=== PATIENT | male | born 1970 | race Caucasian/White ===

== ENCOUNTER 2016-10-27 13:38 | Emergency (ER) | payer BC ==
[2016-10-27] MEDS ORDERED: 0.9 % SODIUM CHLORIDE 1,000 ML BAG IV ONE (13:53)
[2016-10-27] MEDS ORDERED: ONDANSETRON HCL IV 4 MG/2 ML VIAL IVP ONE (13:53)
[2016-10-27] MEDS ORDERED: MECLIZINE 25 MG TABLET PO ONE (13:54)
--- NOTE | 2016-10-27 13:59 | Emergency Department Record ---
History of Present Illness - General Chief Complaint: Dizziness Stated Complaint: DIZZINESS Time Seen by Provider: 10/27/16 13:42 Source: Patient Mode of Arrival: Wheelchair Limitations: No limitations - History of Present Illness Initial Comments: 46 yo male presents with a feeling of dizziness and left ear ringing that started on Thursday at work. No headaches, no vision changes, no speech changes, no weakness or coordination changes of the arms or legs. It is worse with activity or changes in position. He feels off balance with walking. No fevers or chills. No drainage from the ear. The symptoms come and go but now are fairly constant. The were gone or mild over the weekend and then worse today. He was seen at a [facility] care but after feeling shaky he came to the ED. No vomiting. MD Complaint: Dizziness, Lightheadedness, Difficulty walking Onset/Timin -: Days(s) Timing: Gradual onset Description: Lightheadedness, Nausea History of Same: No History of Trauma: No Severity: Severe Improves With: Nothing Worsens With: Movement Associated Symptoms: Ataxia - [place] Coma Scale Eye Response: (4) Open spontaneously Motor Response: (6) Obeys commands Verbal Response: (5) Oriented [place] Total: 15 - Symptoms of Stroke Symptoms of stroke: Dizziness, Vertigo - Related Data Home Medications Medication Instructions Recorded Confirmed Last Taken No Home Med [NO HOME MEDS] 10/27/16 10/27/16 Unknown Allergies Allergy/AdvReac Type Severity Reaction Status Date / Time No Known Drug Allergies Allergy Verified 10/27/16 13:47 Travel Screening - Travel/Exposure Within Last 30 Days Have you traveled within the last 30 days?: No Review of Systems Constitutional: Denies: Chills, Fever, Malaise, Night sweats, Weakness Eyes: Denies: Eye discharge, Eye pain, Photophobia, Vision change ENT: Reports: Ear pain (left ear ringing). Denies: Congestion, Epistaxis, Throat pain Respiratory: Denies: Cough, Dyspnea, Hemoptysis, Stridor, Wheezes Cardiovascular: Denies: Chest pain, Palpitations, Syncope Endocrine: Denies: Fatigue, Polydipsia, Polyuria Gastrointestinal: Reports: Nausea. Denies: Abdominal pain, Diarrhea, Vomiting Genitourinary: Denies: Dysuria, Frequency, Hematuria, Urgency Musculoskeletal: Denies: Arthralgia, Back pain, Neck pain Skin: Denies: Bruising, Change in color, Rash Neurological: Reports: Vertigo. Denies: Abnormal gait, Confusion, Headache, Numbness, Paresthesias, Seizure, Tingling, Tremors, Weakness Psychiatric: Denies: Anxiety Hematological/Lymphatic: Denies: Anemia, Blood Clots, Easy bleeding, Easy bruising, Swollen glands Past Medical History - SOCIAL HISTORY Smoking Status: Never smoker Alcohol Use: None Drug Use: None - RESPIRATORY Hx Respiratory Disorders: No - CARDIOVASCULAR Hx Cardio Disorders: No - NEURO Hx Neuro Disorders: No - GI Hx GI Disorders: No - Hx Genitourinary Disorders: No - ENDOCRINE Hx Endocrine Disorders: No - MUSCULOSKELETAL Hx Musculoskeletal Disorders: No - PSYCH Hx Psych Problems: No - HEMATOLOGY/ONCOLOGY Hx Hematology/Oncology Disorders: No Family Medical History Any Significant Family History?: No Physical Exam - General General Appearance: Alert, Oriented x3, Cooperative, No acute distress Limitations: No limitations - Head Head exam: Normal inspection - Eye Eye exam: Normal appearance, PERRL, EOMI. negative: Conjunctival injection, Nystagmus, Periorbital swelling, Periorbital tenderness - ENT ENT exam: TM's normal bilaterally (Left TM cerumen covering the TM, right is normal). negative: Normal exam Ear exam: Normal external inspection. negative: External canal tenderness Nasal Exam: Normal inspection. negative: Discharge, Sinus tenderness Mouth exam: Normal external inspection, Tongue normal Teeth exam: Normal inspection. negative: Dental caries Throat exam: Normal inspection. negative: Tonsillar erythema, Tonsillar exudate - Neck Neck exam: Normal inspection, Full ROM. negative: Lymphadenopathy, Tenderness - Respiratory Respiratory exam: Normal lung sounds bilaterally. negative: Respiratory distress - Cardiovascular Cardiovascular Exam: Regular rate, Normal rhythm, Normal heart sounds. negative : Diastolic murmur, Systolic murmur Peripheral Pulses: 2+: Radial (R), Radial (L) - GI/Abdominal GI/Abdominal exam: Soft. negative: Tenderness - Rectal Rectal exam: Deferred - exam: Deferred - Extremities Extremities exam: Normal inspection, Full ROM, Normal capillary refill. negative: Tenderness - Back Back exam: Reports: Normal inspection, Full ROM. Denies: Muscle spasm, Rash noted, Tenderness - Neurological Neurological exam: Abnormal gait (The pa), Alert, CN II-XII intact, Normal gait , Oriented X3, Other (Normal FTN, No PND at 10 sec, normal tracking, normal CAREY) . negative: Altered, Motor sensory deficit - Psychiatric Psychiatric exam: Normal affect, Normal mood - Skin Skin exam: Dry, Intact, Normal color, Warm. negative: Cyanosis, Diaphoretic, Erythema, Mottled Stroke Assessment - NIH Stroke Scale 1a. Level of Consciousness: (0) Alert 1b. LOC Questions: (0) Answers Correctly 1c. LOC Commands: (0) Performs Tasks Correctly 2. Best Gaze: (0) Normal 3. Visual: (0) No Visual Loss 4. Facial Palsy: (0) Normal Symmetrical Movement 5a. Motor Arm Left: (0) No Drift 5b. Motor Arm Right: (0) No Drift 6a. Motor Leg Left: (0) No Drift 6b. Motor Leg Right: (0) No Drift 7. Limb Ataxia: (0) Absent 8. Sensory: (0) Normal 9. Best Language: (0) No Aphasia 10. Dysarthria: (0) Normal 11. Extinction/Inattention: (0) No Abnormality NIH [place] Scale Total: 0 Course Vital Signs 10/27/16 13:40 Temperature 97.8 F Pulse Rate 69 Respiratory 18 Rate Blood Pressure 107/72 Pulse Ox 99 - Reevaluation(s) Reevaluation #1: A large dark cerumen impaction was removed from the left ear with good relief for the patient. 10/27/16 14:49 K 3.2 No acute changes on the CBC TSH normal The head CT scan was negative for acute bleed or stroke He was given antivert and zofran without improvement to this point 10/27/16 15:53 Reevaluation #2: The patient is not improved He is still very unstable on his feet with standing or any attempt at walking I SW DR Matthews of [facility] Neurology/Stroke given his persistent symptoms and not typical for simple vertigo He accepts the patient for additional testing and work up 10/27/16 16:14 Reevaluation #3: EKG. NSR, rate 80, intervals normal, axis normal, ST no acute changes 10/27/16 16:35 Medical Decision Making - Lab Data Result diagrams: 10/27/16 13:45 10/27/16 13:45 Disposition Disposition: Transfer Clinical Impression: Vertigo, Impacted cerumen of left ear, Ataxia Disposition: Acute Care Hospital Transfer Transfer To: [facility] Reason For Transfer: Neuro/Stroke Accepting Physician: Cassie Time Discussed w/Accepting Physician: 16:13 Instructions: Vertigo (ED) Additional Instructions: You may take the Antivert as directed Return if worse, any new symptoms, any vision or speech changes. Off work tomorrow Call the number provided for a new family doctor. Forms: Patient Portal Access Time of Disposition: 16:13 Quality - Quality Measures Quality Measures: N/A - Blood Pressure Screening View Details: Yes Blood Pressure Classification: Normal BP Reading Systolic Measurement: 107 Diastolic Measurement: 72 Screening for High Blood Pressure: < Normal BP, F/U Not Required > [G8783] Normal BP Follow-up Interventions: No follow-up required
[2016-10-27 14:02] LABS: BASO % 0.3 % (0-6); EOS % 0.6 % (0-6); GRAN % 72.9 % (47-80); HEMATOCRIT 48.1 % (42.0-52.0); HEMOGLOBIN 17.1 gm/dl (14.0-18.0); LYMPH % 18.4 % (16-45); MEAN CELL VOLUME 85.1 fl (81-97); MEAN CORPUSCULAR HEMOGLOBIN 30.3 pg (27-33); MEAN CORPUSCULAR HGB CONC 35.6 g/dl (32-36); MONO % 7.8 % (0-9); PLATELET COUNT 317 K/uL (130-400); RED BLOOD COUNT 5.65 M/uL (4.40-5.70); RED CELL DISTRIBUTION WIDTH 12.8 % (11.5-14.5); WHITE BLOOD COUNT W/O DIFF 11.7 K/uL (4.2-12.2)
[2016-10-27 14:24] LABS: ALB/GLOB RATIO 1.5 (1.1-1.8); ALBUMIN 4.8 gm/dL (3.5-5.0); ALKALINE PHOSPHATASE 108 U/L (38-126); ALT/SGPT 36 U/L (21-72); ANION GAP 12.8 (7-16); AST/SGOT 18 U/L (17-59); BILIRUBIN,TOTAL 1.18 mg/dL (0.2-1.3); BLOOD UREA NITROGEN 14 mg/dL (9-20); CARBON DIOXIDE 19.2 mmol/L (22-30); CREATININE 1.2 mg/dL (0.66-1.25); EST GLOMERULAR FILTRATION RATE > 60 ml/min; GLUCOSE,RANDOM 136 mg/dL (70-110); TOTAL PROTEIN 7.9 gm/dL (6.3-8.2)
[2016-10-27] MEDS ORDERED: POTASSIUM CHLORIDE 20 MEQ TABLET PO ONE (14:45)
[2016-10-27] MEDS ORDERED: ASPIRIN 325 MG TABLET PO ONE (16:14)
--- NOTE | 2016-10-28 21:29 | CT SCAN REPORT ---
EXAM: CT SCAN HEAD WO CONTRAST HISTORY: DIZZY, LEFT EAR RINGING. TECHNIQUE: AXIAL CT SCAN OF THE HEAD PERFORMED WITHOUT IV CONTRAST. COMPARISON: NONE. FINDINGS: No definite acute intracranial hemorrhage identified. No focal mass effect or midline shift evident. No definite acute infarct or intracranial mass lesion seen. Moderate membrane thickening in the ethmoids bilaterally. There is probably some cerumen in the left external auditory canal. IMPRESSION: 1. NO DEFINITE ACUTE INTRACRANIAL HEMORRHAGE OR FOCAL MASS EFFECT IDENTIFIED. 2. MODERATE MEMBRANE THICKENING IN THE ETHMOIDS BILATERALLY. 3. THERE IS PROBABLY SOME CERUMEN IN THE LEFT EXTERNAL AUDITORY CANAL. JOB NUMBER: [id number] MTDD
== END 2016-10-27 18:11 | disposition short-term general hospital (02) ==
LOC: ER 13:38
DX: R42 Dizziness and giddiness (principal); R11.0 Nausea; R27.0 Ataxia, unspecified; H61.22 Impacted cerumen, left ear
CPT/HCPCS: 69209; 99285 ×2; 96374; 96361; 85025; 80053; 84443; 70450; 93005; 93010; J2405; J7030